=== PATIENT | male | born 1955 | race Hispanic/Latino ===

== ENCOUNTER 2022-04-02 09:42 | Emergency (ER) | payer OTHER ==
[~2022-04-02] VITALS: Ht 172.7 cm; Wt 77.1 kg
[2022-04-02] MEDS ORDERED: QUETIAPINE FUMA25 MG PO (10:09)
[2022-04-02] MEDS ORDERED: LOSARTAN POTASS25 MG PO (10:10)
== END 2022-04-02 11:34 | disposition home or self-care (01) ==
LOC: ED 09:42
DX: R45.1 Restlessness and agitation (principal); Z79.899 Other long term (current) drug therapy; V43.53XA Car driver injured in collision with pick-up truck in traffic accident, initial encounter
CPT/HCPCS: 36415; 80053; 85025; 99284; A9270; G0480; J7030